=== PATIENT | female | born 1980 | race Two or more races ===

== ENCOUNTER 2016-09-20 07:57 | Observation (INO) | payer OTHER ==
--- NOTE | 2016-09-15 12:03 | HISTORY AND PHYSICAL E ---
History and Physical NAME: SVETLANA GOODEN : 1980 AGE: 36Y ADMITTED: 09/20/2016 ROOM: CHIEF COMPLAINT: Constipation, abdominal pain. HISTORY OF PRESENT ILLNESS: The patient presented regarding colon exam. The patient did have upper scope 07/02/2015. She has mild gastritis. We saw her 2015 regarding hernia. At this time, the patient presented for colonoscopy. She does have constipation, . The patient was seen 07/02/2015 for reflux. Upper scope showed no ulcers. Again, the patient did have colonoscopy 2015, has the following: There was a sessile polyp in the sigmoid colon difficult to visualize. Now she presented with rectal bleeding, and she does have a strong family history of colorectal polyps. PAST MEDICAL HISTORY: The patient had sessile polyp in the sigmoid, biopsy and Marli intake. PAST SURGICAL HISTORY: 1. x2. 2. Tummy tuck. MEDICATIONS: 1. Naproxen. 2. Zyrtec. 3. Bentyl. SOCIAL HISTORY: She does not smoke, does not drink. FAMILY HISTORY: Father alive, high blood pressure. Mom is alive, high blood pressure. REVIEWING OF SYSTEMS: GASTROINTESTINAL: Abdominal pain, rectal bleeding, hemorrhoids. PHYSICAL EXAMINATION: GENERAL: Pleasant, alert, oriented, in no acute distress. VITAL SIGNS: Blood pressure 120/60, pulse 80, respirations 20, temperature is 98. HEAD, EYES, EARS, NOSE, THROAT: Normal. ABDOMEN: Soft. NEUROLOGIC: Negative. CONCLUSION: 1. Sessile polyp sigmoid colon. 2. Rectal bleeding. 3. Hemorrhoids. PLAN: Colonoscopy, check the hemorrhoids, check the sigmoid polyp. The patient did have , abdominal pain could be from scarring. Consider small bowel series. Plan colon exam. DICTATING PHYSICIAN: SHEY DESIR M.D. [id number] PHY#: [id number] ID: [id number] JOB#: [id number] ACCT: [id number] cc:SHEY DESIR M.D. [facility] >
[~2016-09-20 07:57] MED LIST: LACTATED RINGERS 1000 ML IV PRN; LIDOCAINE 0.5% INJ-PF (5 MG/ML) 50 ML SDV SUBCUT PRN
[2016-09-20] MEDS ORDERED: GLUCAGON,HUMAN RECOMB 1 MG INJ ONE (08:47)
[2016-09-20] MEDS ORDERED: LIDOCAINE 2% JELLY 30 ML TUBE ONE (08:47)
[2016-09-20] MEDS ORDERED: ACETAMINOPHEN 325 MG TABLET ONE ×2 (09:01→14:55)
[2016-09-20] MEDS ORDERED: EPHEDRINE SULFATE INJ 50 MG/1 ML AMPULE ONE (09:44)
[2016-09-20] MEDS ORDERED: DEXMEDETOMIDINE INJ 80 MCG/20 ML VIAL IV ONE (09:44)
[2016-09-20] MEDS ORDERED: PROPOFOL INJ 200 MG/20 ML VIAL IV ONE (09:44)
[2016-09-20] MEDS ORDERED: ONDANSETRON HCL INJ/PF 4 MG/2 ML SDV IV PRN (09:47)
[2016-09-20] MEDS ORDERED: MEPERIDINE HCL/PF INJ 25 MG/1 ML DISP.SYRIN IV PRN (09:47)
[2016-09-20] MEDS ORDERED: PROMETHAZINE HCL INJ 25 MG/1 ML VIAL IV PRN ×2 (09:47)
[2016-09-20] MEDS ORDERED: DIPHENHYDRAMINE HCL 50 MG/ML VIAL IV PRN (09:47)
[2016-09-20] MEDS ORDERED: FENTANYL CITRATE INJ/PF 100 MCG/2 ML AMPUL IV PRN ×3 (09:47)
--- NOTE | 2016-09-20 11:22 | OPERATIVE REPORT E ---
Operative Report NAME: SVETLANA GOODEN : 1980 AGE: 36Y DATE OF SURGERY: ROOM: PREOPERATIVE DIAGNOSES: A 36-year-old female: 1. Rectal bleeding. History of sigmoid polyp with 1 external hemorrhoid. 2. Sigmoid diverticulosis. 3. Possibility of a polyp growing inside the sigmoid diverticulosis. OPERATION: Colonoscopy. SURGEON: SHEY DESIR M.D. ANESTHESIA: Done in the operating room with anesthesia standby. TISSUE REMOVED OR ALTERED: Biopsy, polyp in the sigmoid colon. PROCEDURE: RECTAL EXAM: Shows external hemorrhoid, sigmoid rectal junction diverticulosis. There is 1 small polyp in the sigmoid colon adjacent to diverticula which was biopsied. I tried to resect it, but it is in a difficult position. It could be related to diverticulosis. Biopsy obtained. There was a small amount of bleeding. The biopsy site was injected with normal saline, thus the bleeding stopped. Descending colon, normal. Transverse colon, normal. Ascending colon and cecum, normal. Scope withdrawn from the cecum. Ascending, transverse, descending, and sigmoid all the way to the rectum. CONCLUSION: Sigmoid diverticulosis, question a polyp in the sigmoid rectal junction. Biopsy obtained. Difficult to resect. PLAN: 1. Observation. 2. Surgical consult. 3. Plain abdominopelvic CT to rule out perforation and for evaluation of diverticula. Rule out bleeding. Twenty-four hours observation. CONCLUSION: 1. Sigmoid diverticulosis. 2. Sigmoid polyp. 3. Question the bleeding coming from diverticulosis or a sigmoid polyp. DICTATING PHYSICIAN: SHEY DESIR M.D. [id number] [id number] Y#: [id number] ID: [id number] JOB#: [id number] ACCT: [id number] cc:[facility], SHEY DESIR M.D. >
[2016-09-20] MEDS ORDERED: ONDANSETRON HCL INJ/PF 4 MG/2 ML SDV ONE (11:44)
[2016-09-20] MEDS ORDERED: DEXAMETHASONE SOD PHOSPHATE INJ 4 MG/1 ML VIAL ONE (11:44)
[2016-09-20] MEDS ORDERED: LIDOCAINE 2% INJ-PF (20 MG/ML) 10 ML AMPUL ONE (11:44)
[2016-09-20] MEDS ORDERED: ACETAMINOPHEN 325 MG TABLET PO ONE ×2 (12:45→16:00)
[2016-09-20 13:13] LABS: ABSOLUTE LYMPHOCYTES (AUTO) 0.9 10^3/uL (0.5-4.7); ABSOLUTE MONOCYTES (AUTO) 0.1 10^3/uL (0.1-1.4); ABSOLUTE NEUT (AUTO) 3.9 10^3/uL (1.7-8.2); BASOPHILS % (AUTO) 0.4 % (0-2); EOSINOPHILS % (AUTO) 0.3 % (0-6); HEMATOCRIT 36.3 % (36.0-47.0); HEMOGLOBIN 12.4 g/dL (12.0-15.5); HGB HCT DIFFERENCE 0.9; LYMPHOCYTES % (AUTO) 17.9 % (13-45); MEAN CORPUSCULAR HEMOGLOBIN 31.9 pg (27.0-33.4); MEAN CORPUSCULAR HGB CONC 34.3 g/dL (32.0-36.0); MEAN CORPUSCULAR VOLUME 93 fl (80-97); MONOCYTES % (AUTO) 2.6 % (3-13); RED BLOOD COUNT 3.89 10^6/uL (3.72-5.28); RED CELL DISTRIBUTION WIDTH 12.2 % (11.5-14.0); SEGMENTED NEUTROPHILS % (AUTO) 78.8 % (42-78)
[2016-09-20 13:34] LABS: ALANINE AMINOTRANSFERASE 33 U/L (9-52); ALKALINE PHOSPHATASE 57 U/L (38-126); ANION GAP 12 (5-19); ASPARTATE AMINO TRANSFERASE 26 U/L (14-36); BILIRUBIN,DIRECT 0.3 mg/dL (0.0-0.4); BILIRUBIN,TOTAL 0.4 mg/dL (0.2-1.3); BLOOD UREA NITROGEN 10 mg/dL (7-20); CALCIUM 9.5 mg/dL (8.4-10.2); CARBON DIOXIDE 23 mmol/L (22-30); CHLORIDE 108 mmol/L (98-107); CREATININE RESULT 0.74 mg/dL (0.52-1.25); GLUCOSE 76 mg/dL (75-110); POTASSIUM 4.4 mmol/L (3.6-5.0); SODIUM 143.4 mmol/L (137-145); TOTAL PROTEIN 7.2 g/dL (6.3-8.2)
--- NOTE | 2016-09-20 13:38 | RADIOLOGY REPORT (SQ) ---
EXAM DESCRIPTION: CT ABD/PELVIS NO ORAL OR IV COMPLETED DATE/TIME: 09/20/2016 1:20 pm REASON FOR STUDY: R/O DIVERTIC OR PERFOR K62.5 HEMORRHAGE OF ANUS AND RECTUM COMPARISON: None. TECHNIQUE: CT scan of the abdomen and pelvis performed without intravenous or oral contrast. Images reviewed with lung, soft tissue, and bone windows. Reconstructed coronal and sagittal MPR images revi ewed. All images stored on PACS. All CT scanners at this facility use dose modulation, iterative reconstruction, and/or weight based d osing when appropriate to reduce radiation dose to as low as reasonably achievable (ALARA). [facility]: Dose Right [facility]: CareDose [facility]: Dose Right [facility]: Teradose 4D [facility]: 9Lenses RADIATION DOSE: 5.33mGy. LIMITATIONS: None. FINDINGS: LOWER CHEST: No significant findings. No nodules or infiltrates. NON-CONTRASTED LIVER, SPLEEN, ADRENALS: Evaluation limited by lack of IV contrast. No identified sign ificant masses. PANCREAS: No masses. No peripancreatic inflammatory changes. GALLBLADDER: No identified stones by CT criteria. No inflammatory changes to suggest cholecystitis. RIGHT KIDNEY AND URETER: No solid masses. No significant calcification. No hydronephrosis or hydroure ter. LEFT KIDNEY AND URETER: No solid masses. No significant calcification. No hydronephrosis or hydrouret er. AORTA AND RETROPERITONEUM: No aneurysm. No retroperitoneal masses or adenopathy. BOWEL AND PERITONEAL CAVITY: No obvious masses or inflammatory changes. No free fluid. APPENDIX: Normal. PELVIS, BLADDER, AND ABDOMINAL WALL:Small amount of relatively simple appearing free fluid in the pel vis which may be physiologic. No loculated fluid or pelvic mass identified. There is a solitary pre sumed left tubal ligation clip in place. The bladder looks normal. BONES: No significant findings. OTHER: No other significant finding. IMPRESSION: 1. No definite acute or suspicious abdominopelvic abnormality allowing for trace fluid i n the pelvis. In a patient of this age, this may be physiologic. No clear bowel related inflammator y changes or perforation. Normal appendix. TECHNICAL DOCUMENTATION: JOB ID: [id number] Quality ID # [id number]: Final reports with documentation of one or more dose reduction techniques (e.g., Au tomated exposure control, adjustment of the mA and/or kV according to patient size, use of iterative reconstruction technique) 2010 [employer]- All Rights Reserved
[2016-09-20 17:25] VITALS: BP 110/66
--- NOTE | 2016-09-20 17:58 | DISCHARGE SUMMARY E ---
Discharge Summary NAME: SVETLANA GOODEN : 1980 AGE: 36Y ADMITTED: 09/20/2016 DISCHARGED: The patient is a 36-year-old female who presented with rectal bleeding and underwent colonoscopy showing sigmoid diverticulosis. There was a small 3-4 mm polyp adjacent to the diverticulosis, and it was in an area where it is difficult to resect. I cannot see head on for safe resection, and I cannot see the base of it. We did biopsy it, and it did have a small amount of bleeding. This was controlled by injecting saline. I did inject saline to try to better visualize the polyp but was unsuccessful for safe resection. Surgical consult was obtained, but the surgeon is unable to see her. I reviewed her CT, and she is clinically stable. She has no sign of perforation. Her CT scan shows no perforation, no diverticulitis, and basically negative CT for any complications. I went on detail with her. She is going to be discharged on full liquid diet. She is going to see her primary and will do elective surgical consult as an outpatient through [facility]. FINAL DIAGNOSES: 1. Status post colonoscopy with biopsy done in the operating room with Anesthesia standby. 2. Sigmoid diverticulosis. 3. External hemorrhoids which most likely causing the bleeding. 4. Small benign-looking polyp in the sigmoid in difficult angle to resect. Patient discharged on full liquid, and she will call me tomorrow about her progress. She was advised to go to the emergency room if she has any acute abdominal pain. DICTATING PHYSICIAN: SHEY DESIR M.D. [id number] [id number] Y#: [id number] ID: [id number] JOB#: [id number] ACCT: [id number] cc:[facility]. SHEY DESIR M.D. >
== END 2016-09-20 18:45 | disposition home or self-care (01) ==
LOC: OROUT 07:57 → 2N 08:56 → UNDOADMOB 12:53 → 2N 12:53
PROVIDERS: ADMIT Specialist; ATTEND Specialist
PROC: 0DBN8ZX Excision of Sigmoid Colon, Via Natural or Artificial Opening Endoscopic, Diagnostic (ICD-10-PCS; principal; 2016-09-20 10:00)
PROC: 3E0H8GC Introduction of Other Therapeutic Substance into Lower GI, Via Natural or Artificial Opening Endoscopic (ICD-10-PCS; 2016-09-20 10:00)
DX: K57.30 Diverticulosis of large intestine without perforation or abscess without bleeding (principal); D12.5 Benign neoplasm of sigmoid colon; K64.4 Residual hemorrhoidal skin tags; K62.5 Hemorrhage of anus and rectum; K59.00 Constipation, unspecified; K29.70 Gastritis, unspecified, without bleeding; Z83.71 Family history of colonic polyps; Z98.890 Other specified postprocedural states; Z79.1 Long term (current) use of non-steroidal anti-inflammatories (NSAID)
CPT/HCPCS: 45380; 45381; 36415; 85025; 81025; 80053; 88305 ×2; 74176; J1100; J1610; J2405; J7120; J2704; J3490; 810; G0378

== ENCOUNTER → 2017-10-02 | Outpatient (CLI) | payer OTHER ==
--- NOTE | 2017-10-02 10:34 | RADIOLOGY REPORT (SQ) ---
EXAM DESCRIPTION: RAISA SWALLOW COMPLETED DATE/TIME: 10/02/2017 8:27 am REASON FOR STUDY: DYSPHAGIA (R13.10) R13.10 DYSPHAGIA, UNSPECIFIED COMPARISON: None. TECHNIQUE: Videofluoroscopic swallowing examination was performed in conjunction with speech patholo gy. Videofluoroscopic imaging was obtained and reviewed and these are the findings: RADIATION DOSE: Fluoro time 1.34 minutes 1 images saved to PACS. LIMITATIONS: None FINDINGS: The patient was brought into the fluoro room and placed upright on a modified barium swall ow chair. The patient was then given multiple consistencies mixed with barium to swallow under live fluoroscopic video guidance. According to the Speech Pathologist there was no penetration or aspirat ion. Please refer to the speech pathology report for further details. IMPRESSION: NO EVIDENCE OF PENETRATION OR ASPIRATION.PLEASE SEE SPEECH PATHOLOGIST REPORT FOR OTHER FINDINGS AND RECOMMENDATIONS. COMMENT: None Quality ID [id number]: Final reports for procedures using fluoroscopy that document radiation exposure gilmer sonia, or exposure time and number of fluorographic images (if radiation exposure indices are not avail able) TECHNICAL DOCUMENTATION: JOB ID: [id number] [employer]- All Rights Reserved Reading location - IP/workstation name: [email or web address] [id number]
--- NOTE | 2017-10-02 17:31 | ST Modified Barium Swallow ---
Recommendation - Recommendations Recommendations: No diet changes or strategies recommended. May be having difficulties due to dry mouth and reflux issues. Medical Diagnoses - Medical Diagnoses Medical Diagnosis Description & ICD-10 Code(s): dysphagia, R13.10 Other Medical Diagnoses/Co-Morbidities: per patient report: hypothyroidism, migraines, reflux, IBS, "mild gastritis, esophagitis". ST Modified Barium Swallow - General Date: 10/02/17 Referring Physician: Dr. Rahman Risks/Precautions: None Date of Onset: 09/21/16 - approximate date Reason for Referral: choking sensation at times - History History obtained from: Patient -: Medical - Patient reports having occasional difficulties with swallowing, characterized by globus sensation with foods and occasional choking "every couple of weeks" with liquids. Patient also reports difficulty with dry mouth due to medications she takes, and therefore avoids dry foods. She also reports reflux for which she takes medication. Medications: Per patient report: adderol, protonix, zantac, synthroid ( imcomplete list given) - Functional Status Prior Functional Status: INDEPENDENT: feeding - indepedent Current Functional Limitations: feeding - min difficulty - Subjective Patient/caregiver goal(s): safe swallow Cognitive-Linguistic Function: WNL Speech Intelligibility: WNL Current Nutritional Means: PO Current PO diet: Regular Current symptoms: c/o Globus sensation Pain: Patient reports, 0/5 - Objective Assessment: Upright, Left Lateral - Food Trials Used Food trials used: Thin liquids, Pureed, Regular The patient: Was Able to Self Feed - Oral-Motor Skills Dentition: Full Laryngeal Function: Volitional Cough - WNL, Volitional Swallow - WNL - Assessment Oral prep: Normal Labial closure: Adequate Leakage: None Mastication: Adequate Lingual Movement: Normal Oral stage: Mildly Impaired - possibly due to dry mouth - Pharyngeal Stage Initiation of Pharyngeal Stage Reflex: Normal Decreased laryngeal elevation: No Reduced Velopharyngeal Closure: no Reduced pressure generation: No reduced tongue-based retraction: No Pre-swallow pooling in valleculae: None Pre-Swallow pooling in pyriforms: None Reduced Thyro-Hyoid approximation: No Reduced epiglottic excursion: No Reduced pharyngeal peristalsis/contraction: No Post-swallow residulas vallecular: None Post-Swallow residuals in pyriforms: None Reduced Cricopharyngeal opening: No - Fall Risk Assessment Medications/Conditions that increase fall risks include: Antidepressants, sedatives, anti-arrhythmic, diuretic, benzodiazipenes, neuroleptics. BP regulation problems, cardiac problems, balance or gait deficits, neurological problems. Is patient considered at risk for falls: no Fall Risk Actions Taken: No action needed - Behavioral Observations During evaluation process patient: was pleasant, was cooperative, able to answer questions, provided medical history - Treatment / Educational Needs: Treatment/Education Needs: Treatment consisted of patient education on the role of the Speech Pathologist. Patient's plan of care and golas were communicated as well as scheduling and attendance policies. Recommendations for initial home program were shared. Patient demonstrated understanding and verbalized agreement. - Impression/Summary Laryngeal Penetration: No Tracheal Aspiration: no Patient presents with: Normal swallow at eval Risk of Aspiration: Minimal Evaluation and Findings: Some signs of difficulty propelling bolus from oral cavity, this appears to be due more so to dry mouth complaints as all oral musculature is moving appropriately. Patient also commented on globus sensation following solid trials, however, x-ray showed clear pharynx. - Recommendations Solid diet recommendations: Regular Liquid Diet Modification: Thin Dysphagia therapy with ROOMING HOUSE KEEPER: no Reflux Precautions: Taught to Patient Recommended techniques: Fully Upright During Meal, Small Bites and Sips, Alternate Bites/Sips Information, Precautions and Recommendations: Patient (Written), Patient (Verbal ) - Time Total Time: 20 - Plan of Care Strategies to optimize patient understanding include:: ongoing assessment of educational needs, implementation of educational strategies, and re-education. - - -: Thank you for the opportunity to work with this patient and his/her family. Should you have any questions about this patient's plan or progress, I can be reached at [phone]. Charge G Code? - - -: No
== END ==
LOC: RAD 07:54
PROVIDERS: ATTEND Otolaryngology
DX: R13.10 Dysphagia, unspecified (principal); K21.0 Gastro-esophageal reflux disease with esophagitis; E03.9 Hypothyroidism, unspecified
CPT/HCPCS: 74230